=== PATIENT | female | born 1990 | race Caucasian/White ===

== ENCOUNTER 2023-09-25 07:50 | Day surgery (SDC) | payer OTHER ==
[~2023-09-25] VITALS: Ht 162.6 cm; Wt 86.3 kg
[~2023-09-25 07:50] MED LIST: TAGA200T3 PO; ZOLO100T PO
[2023-09-25] MEDS: NS 1,000 ML IV ONE (08:24)
[2023-09-25] MEDS ORDERED: fentaNYL 100 MCG/2 ML INJECTION As Ordered ONE (09:36)
[2023-09-25] MEDS ORDERED: ONDANSETRON 4MG 2ML VIAL As Ordered ONE (09:46)
[2023-09-25] MEDS ORDERED: propofoL 200 MG/20 ML VIAL As Ordered ONE (09:46)
[2023-09-25] MEDS ORDERED: LIDOCAINE 2% 100MG/5ML SDV (FOR ANES.) As Ordered ONE (09:46)
[2023-09-25 10:26] VITALS: TEMP 97.4
[2023-09-25 10:48] VITALS: BP 114/57; O2SAT 100
== END 2023-09-25 11:00 | disposition home or self-care (01) ==
LOC: M OPP 07:50
PROVIDERS: ATTEND Internal Medicine Gastroenterology
DX: K29.51 Unspecified chronic gastritis with bleeding (principal); R13.10 Dysphagia, unspecified; K64.8 Other hemorrhoids; K64.4 Residual hemorrhoidal skin tags; K52.9 Noninfective gastroenteritis and colitis, unspecified; K76.0 Fatty (change of) liver, not elsewhere classified; Z79.899 Other long term (current) drug therapy
CPT/HCPCS: 43239; 43249; 45380; 88305; J2405; J3010